=== PATIENT | male | born 1955 | race Caucasian/White ===

== ENCOUNTER 2023-10-18 08:01 | Day surgery (SDC) | payer MEDICARE, BC ==
[~2023-10-18 08:01] MED LIST: Sodium Chloride 0.9% 10 ML Syringe FLUSH PRN
[2023-10-18] MEDS: Lactated Ringers 1,000 ML IV SCH (08:06)
[2023-10-18] MEDS ORDERED: Propofol 200 MG/20 ML SDV ONE (08:50)
[2023-10-18] MEDS ORDERED: Lidocaine 2% 5 ML SDV ONE (09:12)
[2023-10-18 10:11] VITALS: BP 142/79; PULSE 79
== END 2023-10-18 10:18 | disposition home or self-care (01) ==
LOC: LL.SDS 08:01
PROVIDERS: ATTEND Surgery
DX: Z12.11 Encounter for screening for malignant neoplasm of colon (principal); K63.5 Polyp of colon; K51.40 Inflammatory polyps of colon without complications; Z86.010 Personal history of colon polyps; I10 Essential (primary) hypertension; E11.42 Type 2 diabetes mellitus with diabetic polyneuropathy; J44.9 Chronic obstructive pulmonary disease, unspecified; E78.5 Hyperlipidemia, unspecified; I25.10 Atherosclerotic heart disease of native coronary artery without angina pectoris; E66.9 Obesity, unspecified; Z68.35 Body mass index [BMI] 35.0-35.9, adult; Z87.891 Personal history of nicotine dependence; Z79.84 Long term (current) use of oral hypoglycemic drugs; Z79.899 Other long term (current) drug therapy
CPT/HCPCS: 82947; 88305; J2704; J3490; J7120